=== PATIENT | male | born 1980 | race Caucasian/White ===

== ENCOUNTER 2022-12-02 22:01 | Observation (INO) | payer SELFPAY ==
[2022-12-02 22:20] VITALS: BP 117/76; PULSE 82; RESP 18; TEMP 37.5; O2SAT 96; BMI 34.4
[2022-12-02 23:42] VITALS: BP 127/79; PULSE 79; RESP 18; O2SAT 97
--- NOTE | 2022-12-02 23:54 | ED.ABDPAIN ---
HPI - Abdominal Pain General Time Seen by Provider: 23:54 Date Seen: 12/02/22 Chief Complaint: Abdominal Pain Stated Complaint: abdominal pain Time Seen by Provider: 12/02/22 23:49 Source: patient, family, RN notes reviewed and old records reviewed Mode of arrival: ambulatory Limitations: no limitations History of Present Illness HPI narrative: 42-year-old male comes in with abdominal pain today. Nausea but no vomiting, some loose stools. Denies urinary symptoms. Pain is worse with standing or walking. Took Pepto-Bismol with no relief. No prior surgeries, does not smoke or drink alcohol, no primary care. Last oral intake was at noon. Related Data Allergies Allergy/AdvReac Type Severity Reaction Status Date / Time No Known Drug Allergies Allergy Verified 12/02/22 22:27 Exam Narrative: Exam Narrative: General: Well-developed and well-nourished, no acute distress Head: Atraumatic and normocephalic Eyes: Pupils are equal reactive, extraocular motions intact, conjunctiva clear ENT: External nose and ears are normal, posterior pharynx without erythema or exudate Neck: No midline cervical tenderness, full spontaneous range of motion the neck, trachea midline, no adenopathy Heart: Regular rate and rhythm no murmurs or thrills Lungs: Clear to auscultation bilaterally without wheezes or crackles Abdomen: Soft, right lower quadrant tenderness,, nondistended with active bowel sounds Musculoskeletal: No tenderness, deformity, or edema Neurologic: Awake, alert, and oriented x3, no gross focal neurologic deficits, cranial nerves intact as tested Psych: Mood and affect are appropriate Skin: No rashes Const: Vital Signs, click to edit/add: Vital Signs - 24 hr 12/02/22 22:20 12/02/22 23:42 Temperature 99.5 F Pulse Rate [Right Pulse Oximeter] 82 79 Respiratory Rate 18 18 Blood Pressure [Ri ght Upper Arm] 117/76 127/79 Pulse Oximetry 96 97 Oxygen Delivery Me thod Room Air Room Air Course Course Hospital Course: Patient seen and examined, prior records reviewed. Patient presents today with abdominal pain since noon, marked tenderness of the right lower quadrant on exam. Concern for acute appendicitis, mesenteric adenitis also possible. No right upper quadrant epigastric tenderness, acute cholecystitis or pancreatitis less likely, no urinary symptoms or flank pain, kidney stone also less likely. Labs and CT scan are ordered. Reevaluation(s) Time of Reevaluation #1: 00:51 Reevaluation #1: Labs independently interpreted by me with leukocytosis. CT scan independently interpreted by me demonstrates dilated appendix with mild inflammatory changes consistent with acute appendicitis, no evidence for perforation. Care discussed with Dr. Rand, general surgery and patient will be admitted with plan for surgery in the morning. Vital Signs Vital signs: Initial Vital Signs Temperature 99.5 F 12/02/22 22:20 Temperature Source Temporal Artery Scan 12/02/22 22:20 Pulse Rate 82 12/02/22 22:20 Pulse Rhythm Regular 12/02/22 22:20 Respiratory Rate 18 12/02/22 22:20 Blood Pressure 117/76 12/02/22 22:20 Blood Pressure Mean 89 12/02/22 22:20 Blood Pressure Position Sitting 12/02/22 22:20 Pulse Oximetry 96 12/02/22 22:20 Oxygen Delivery Method Room Air 12/02/22 22:20 Vital Signs Temperature 99.5 F 12/02/22 22:20 Pulse Rate 82 12/02/22 22:20 Respiratory Rate 18 12/02/22 22:20 Blood Pressure 117/76 12/02/22 22:20 Pulse Oximetry 96 12/02/22 22:20 Oxygen Delivery Method Room Air 12/02/22 22:20 Temperature 99.5 F 12/02/22 22:20 Pulse Rate 79 12/02/22 23:42 Respiratory Rate 18 12/02/22 23:42 Blood Pressure 127/79 12/02/22 23:42 Pulse Oximetry 97 12/02/22 23:42 Oxygen Delivery Method Room Air 12/02/22 23:42 MDM - Abdominal Pain Lab Data Labs: Lab Results 12/03/22 Range/Units 00:07 WBC 14.94 H (4.50-11.00) K/uL RBC 5.72 (4.30-5.90) m/uL Hgb 16.5 (13.5-17.5) gm/dL Hct 48.3 (37.0-53.0) % MCV 84 (80-100) fL MCH 29 (26-34) pg MCHC 34 (32-36) gm/dL RDW Coeff of Nancy 12.5 (11.5-15.5) % Plt Count 244 (140-440) K/uL Neut % (Auto) 86.6 H (42.0-72.0) % Lymph % (Auto) 6.8 L (20-44) % Hodgeman % (Auto) 6.0 (0.0-11.0) % Eos % (Auto) 0.1 (0.0-7.0) % Baso % (Auto) 0.3 (0.0-3.0) % Neut # (Auto) 12.90 H (1.7-7.0) K/uL Lymph # (Auto) 1.00 (0.90-2.90) K/uL Hodgeman # (Auto) 0.90 (0.00-0.90) K/UL Eos # (Auto) 0.00 (0.00-0.50) K/uL Baso # (Auto) 0.00 (0.00-0.30) K/uL Abs Immat Gran (auto) 0.00 (0.00-0.30) K/uL Imm/Tot Granulo (auto) 0.2 % Sodium 138 (135-149) mmol/L Potassium 3.5 L (3.6-5.1) mmol/L Chloride 105 (96-114) mmol/L Carbon Dioxide 24 (20-32) mmol/L BUN 9 (5-24) mg/dL Creatinine 0.9 (0.5-1.5) mg/dL Estimated Creat Clear 93.01 Estimated GFR 109 ml/min Glucose 119 H (60-115) mg/dL Calcium 9.1 (8.4-10.6) mg/dL Magnesium 1.9 (1.5-2.6) mg/dL Discharge Plan Discharge Clinical Impression: Acute appendicitis Patient Disposition: Admitted As Observation
[2022-12-03] MEDS: 0.9 % SODIUM CHLORIDE 1000 ml 1,000 ML IV (00:10)
--- NOTE | 2022-12-03 00:12 | CRLHL7_ITS ---
For Patients: As a result of the Cures Act, medical imaging exams and procedure reports are released immediately into your electronic medical record. You may view this report before your referring provider. If you have questions, please contact your health care provider. INDICATION: Right lower quadrant abdominal pelvic pain TECHNIQUE: CT Abdomen and pelvis without i.v. contrast. Coronal and sagittal reformats were obtained. COMPARISON: None FINDINGS: Lower chest: Minimal pleural parenchymal scarring seen in the left posterior lower lobe. There is a 3 mm nodule in the left lower lobe that is too small to further characterize. Liver: Unremarkable. Spleen: Unremarkable. Pancreas: Unremarkable. Gallbladder: Unremarkable. Kidney: Unremarkable. No kidney or ureteral stones or obstruction seen. Adrenal: Unremarkable. Bowel: Unremarkable. The appendix is distended measuring 11 mm. There is mild surrounding inflammatory changes noted. No periappendiceal abscess is seen. Vascular: Unremarkable. Lymph: Unremarkable. Peritoneum: Unremarkable. No pneumoperitoneum is seen. No significant ascites is noted. Pelvis: Unremarkable. Soft tissue: Unremarkable. Bone: Unremarkable for age. IMPRESSION: 1. The appendix is distended measuring 11 mm. There is mild surrounding inflammatory changes noted. No periappendiceal abscess is seen. These findings are consistent with acute appendicitis. Dictated by Yury Camilo MD @ 12/03/2022 12:47:14 AM Please note that all CT scans at this facility use dose modulation, iterative reconstruction, and/or weight-based dosing when appropriate to reduce radiation dose to as low as reasonably achievable. Dictated by: Yury Camilo MD @ 12/03/2022 00:47:30 (Electronically Signed)
[2022-12-03 00:16] LABS: Basophils Percent Auto 0.3 % (0.0-3.0); Eosinophils Percent Auto 0.1 % (0.0-7.0); Hematocrit 48.3 % (37.0-53.0); Hemoglobin* 16.5 gm/dL (13.5-17.5); Immature Granulocytes Pct Auto 0.2 %; Lymphocytes Percent Auto 6.8 % (20-44); Mean Corpuscular HGB Conc 34 gm/dL (32-36); Mean Corpuscular Hemoglobin 29 pg (26-34); Mean Corpuscular Volume 84 fL (80-100); Neutrophils Percent Auto 86.6 % (42.0-72.0); Platelet Count* 244 K/uL (140-440); RDW Coefficient of Variation % 12.5 % (11.5-15.5); Red Blood Count 5.72 m/uL (4.30-5.90); Slide Review Reflex No; White Blood Count* 14.94 K/uL (4.50-11.00)
[2022-12-03 00:28] LABS: Chloride* 105 mmol/L (96-114); Potassium* 3.5 mmol/L (3.6-5.1); Sodium* 138 mmol/L (135-149)
[2022-12-03 00:31] LABS: Blood Urea Nitrogen* 9 mg/dL (5-24); Carbon Dioxide* 24 mmol/L (20-32); Creatinine* 0.9 mg/dL (0.5-1.5); Est. Creatinine Clearance* 93.01; Estimated Glomerular Filt Rate 109 ml/min; Glucose* 119 mg/dL (60-115)
[2022-12-03 00:32] LABS: Calcium* 9.1 mg/dL (8.4-10.6); Magnesium* 1.9 mg/dL (1.5-2.6)
[2022-12-03 01:07] VITALS: BP 119/75; PULSE 94; RESP 18; TEMP 37.3; O2SAT 97
--- NOTE | 2022-12-03 01:13 | PC.NURSE ---
report given to manuela RN, patient to go to room 260
[2022-12-03 01:41] VITALS: BP 122/84; PULSE 92; RESP 18; TEMP 37.8; O2SAT 94; BMI 33.2
[2022-12-03 01:53] VITALS: TEMP 37.8
[2022-12-03] MEDS: ACETAMINOPHEN 325 MG TABLET 650 MG PO (01:53)
[2022-12-03] MEDS: PIPERACILLIN/TAZOBACTAM 3.375 GM in 0.9 % SODIUM CHLORIDE Mini-bag 100 ML IVPB ×2 (01:55→08:00)
[2022-12-03] MEDS: LACTATED RINGERS 1000 ML 1,000 ML 125 ML IV (01:55)
[2022-12-03 03:00] VITALS: BP 109/74; PULSE 78; RESP 18; TEMP 37.6; O2SAT 92
--- NOTE | 2022-12-03 06:45 | PC.NURSE ---
Arrived to floor at 0115 w/ . A&O, pleasant and cooperative. Pt is primarily Georgian speaking, strategic communications manager offered, pt declined. Waiver signed in ED. Temp on admission 100.0 VS otherwise stable w/ sats >90% on RA. Tylenol given. Recheck temp 99.6. ?Rating abd pain 07/05. Pt declined pain medication. Denied n/v. Up at [facility].
[2022-12-03 07:00] VITALS: BP 104/72; PULSE 82; RESP 18; TEMP 37.1; O2SAT 94
[2022-12-03 07:50] LABS: Basophils Percent Auto 0.3 % (0.0-3.0); Eosinophils Percent Auto 0.5 % (0.0-7.0); Hematocrit 45.3 % (37.0-53.0); Hemoglobin* 15.3 gm/dL (13.5-17.5); Immature Granulocytes Pct Auto 0.2 %; Lymphocytes Percent Auto 21.2 % (20-44); Mean Corpuscular HGB Conc 34 gm/dL (32-36); Mean Corpuscular Hemoglobin 29 pg (26-34); Mean Corpuscular Volume 86 fL (80-100); Neutrophils Percent Auto 68.8 % (42.0-72.0); Platelet Count* 225 K/uL (140-440); RDW Coefficient of Variation % 12.7 % (11.5-15.5); Red Blood Count 5.29 m/uL (4.30-5.90); White Blood Count* 12.33 K/uL (4.50-11.00)
[2022-12-03 07:53] LABS: Slide Review Reflex No
--- NOTE | 2022-12-03 08:39 | P.GSHP_ITS ---
History of Present Illness History of Present Illness Date Seen: 12/03/22 Chief complaint: abdominal pain Narrative: Laurel Berrios is a 42 year old male who presented to the emergency department last night with a one day history of lower abdominal pain. He states that the pain was mainly focused in a band around his belly button and in the right lower quadrant. He has never had pain like this before, which prompted him to come in. He denies any decrease in appetite, nausea or vomiting. No reported fevers at home. No diarrhea or constipation. He has never had surgery before. Patient was admitted to [facility] [place] [place] initiated. On evaluation this morning the patient states that he has had complete resolution of his pain. He had Tylenol at 2:00 a.m., no need for narcotic pain medicine. He was feeling hungry and wanting to get up and move around. Review of Systems Status of ROS: Reports: 10 or more systems reviewed and unremarkable except as noted in History and below PFSH PFS Social History What is your current living situation?: I presently have a place to live Problems where you live: no known problems Problems where you live details: n/a In the past 12 months, utilities in danger of being shut off: no In the past 12 mos, have been you worried that your food would run out before you had money to buy more?: never true In the past 12 mos, the food you bought just didn't last and you didn't have money to buy more?: never true Highest level of school completed/degree received: high school graduate Smoking Status: Never smoker Do you use any of these nicotine containing products: None How often do you have a drink containing alcohol: 2-3 times a week How many standard drinks containing alcohol do you have on a typical day: 1 or 2 How often do you have six or more drinks on one occasion: Never AUDIT-C Alcohol total score: 3 Non-prescribed substance use: denies use How often does anyone, including family, friends and others, physically hurt you : never How often does anyone, including family, friends and others, insult or talk down to you: never How often does anyone, including family, friends and others, threaten you with harm: never How often does anyone, including family, friends and others, scream or curse at you: never Meds Home Medications and Allergies Allergies Allergy/AdvReac Type Severity Reaction Status Date / Time No Known Drug Allergies Allergy Verified 12/02/22 22:27 Exam Narrative: Exam Narrative: General: Alert and oriented, no acute distress Respiratory: Equal breath rise bilaterally, clear breath sounds CV: Regular rhythm rate Abdomen: Soft, nontender and nondistended. Benign abdomen with no guarding or rebound. Const: Vital Signs, click to edit/add: Vital Signs - 24 hr 12/02/22 22:20 12/02/22 23:42 12/03/22 01:07 Temperature 99.5 F 99.1 F Pulse Rate [Pulse Oximeter] Pulse Rate [Right Pulse Oximeter] 82 79 94 Respiratory Rate 18 18 18 Blood Pressure [Le ft Arm] Blood Pressure [Ri ght Upper Arm] 117/76 127/79 119/75 Pulse Oximetry 96 97 97 Oxygen Delivery Me thod Room Air Room Air Room Air 12/03/22 01:41 12/03/22 01:53 12/03/22 03:00 Temperature 100.0 F H 100.0 F H 99.6 F Pulse Rate [Pulse Oximeter] 92 78 Pulse Rate [Right Pulse Oximeter] Respiratory Rate 18 18 Blood Pressure [Le ft Arm] 122/84 109/74 Blood Pressure [Ri ght Upper Arm] Pulse Oximetry 94 92 Oxygen Delivery Me thod Room Air Room Air 12/03/22 07:00 Temperature 98.7 F Pulse Rate [Pulse Oximeter] 82 Pulse Rate [Right Pulse Oximeter] Respiratory Rate 18 Blood Pressure [Le ft Arm] 104/72 Blood Pressure [Ri ght Upper Arm] Pulse Oximetry 94 Oxygen Delivery Me thod Room Air Results Results Labs: WBC is down trending this morning (14--12). No longer evidence of a left shift. Abdomen CT scan report/results: report reviewed and image reviewed (Patient does have a dilated appendix with minimal dale appendiceal inflammation. No evidence of fecalith. No evidence of perforation. Findings are concerning for acute appendicitis.) Assessment and Plan Assessment and plan (1) Acute appendicitis: Status: Acute Plan Patient is a 42-year-old male presented with clinical workup concerning for acute appendicitis. On presentation this morning the patient is reporting resolution of his pain. I did discuss with the patient that his white blood cell count is trending in the right direction, but still mildly elevated at 12. I also reviewed the patient's imaging findings, which includes a mildly dilated appendix with some periappendiceal inflammation. Different treatment options were reviewed, including medical management of appendicitis with antibiotics versus operative intervention. I discussed that the surgery would be performed laparoscopic. In the setting that the appendix is normal an appendectomy would still occur. For non operative management a course of antibiotics would be prescribed. He does understand that if he chooses this option there is a possibility of disease progression, disease recurrence or missed neoplasm. After discussing risk and benefits of both treatment options the patient has elected for medical management at this time. He is a candidat with evidence on imaging of localized inflammation without findings of diffuse peritonitis or imaging evidence of large abscess, phlegmon, perforation or tumor. There was also no evidence of a appendicolith, which increases the risk of complications. Will plan for diet this morning. Continue IV antibiotics while inpatient and transition to oral antibiotics to complete a 10 day course. He was encouraged to call the clinic or present to the emergency department with any increasing abdominal pain or fevers at.
--- NOTE | 2022-12-03 12:03 | PC.NURSE ---
0730 spoke with surgeon regarding patient, verbal order for stat cbc, call with results. phoned surgeon at 0830 with cbc results, order for regular diet and encourage patient to ambulate in hallways and call back with update. phoned surgeon with update tolerating regular diet and ambulation without increase in pain and no nausea, around 1100 call back and telephone order for discharge.
--- NOTE | 2022-12-03 12:12 | PC.NURSE ---
Patient denied pain. Tolerated regular diet and fluids. Denied nausea or vomiting. Ate and ambulated independently. IV discontinued. Pt discharged at this time. In person dipping machine operator used with discharge instructions. Pt verbalized understanding. Ambulated out of med/surg with significant other.
--- NOTE | 2022-12-03 12:13 | PM.DS1 ---
DS: Providers Provider Date Seen: 12/03/22 Date of admission: 12/03/22 01:16 Primary care physician: Not a Local Provider Admitting Clinician: Shanti Bains MD Attending Physician on discharge: Shanti Bains MD DS: Summary Hospital Course Hospital Course: Patient presented to the emergency department on 12/02/22. Clinical workup and symptoms concerning for acute appendicitis. He was admitted and started on IV antibiotics. I evaluated the patient on 12/03/2022 with patient reporting complete resolution of his pain and benign exam. Different treatment options were reviewed with the patient, which included medical management versus surgical intervention. Risks and benefits were discussed at length with the patient deciding to proceed with medical management and a course of antibiotics. The patient did express understanding of risks, which includes but are not limited to progression of disease, recurrence of disease or missed neoplasm. He was instructed to call with any symptoms of worsening abdominal pain or fevers. Patient was transition from IV Zosyn to the oral amoxicillin, to complete a 10 day course. Will plan for patient to follow up either in surgery clinic or his primary care provider in 1 week. Time Spent with Patient Time attestation: Total time spent providing and/or coordinating discharge services: Exam Narrative: Exam Narrative: Please see consultation note from same date. Const: Vital Signs, click to edit/add: Vital Signs - 24 hr 12/02/22 22:20 12/02/22 23:42 12/03/22 01:07 Temperature 99.5 F 99.1 F Pulse Rate [Pulse Oximeter] Pulse Rate [Right Pulse Oximeter] 82 79 94 Respiratory Rate 18 18 18 Blood Pressure [Le ft Arm] Blood Pressure [Ri ght Upper Arm] 117/76 127/79 119/75 Pulse Oximetry 96 97 97 Oxygen Delivery De thod Room Air Room Air Room Air 12/03/22 01:41 12/03/22 01:53 12/03/22 03:00 Temperature 100.0 F H 100.0 F H 99.6 F Pulse Rate [Pulse Oximeter] 92 78 Pulse Rate [Right Pulse Oximeter] Respiratory Rate 18 18 Blood Pressure [Le ft Arm] 122/84 109/74 Blood Pressure [Ri ght Upper Arm] Pulse Oximetry 94 92 Oxygen Delivery De thod Room Air Room Air 12/03/22 07:00 Temperature 98.7 F Pulse Rate [Pulse Oximeter] 82 Pulse Rate [Right Pulse Oximeter] Respiratory Rate 18 Blood Pressure [Le ft Arm] 104/72 Blood Pressure [Ri ght Upper Arm] Pulse Oximetry 94 Oxygen Delivery Me thod Room Air DS: Data Data Completed and Pending Labs on day of discharge: Labs from last 24 hours 12/03/22 12/03/22 07:44 00:07 WBC 12.33 H 14.94 H RBC 5.29 5.72 Hgb 15.3 16.5 Hct 45.3 48.3 MCV 86 84 MCH 29 29 MCHC 34 34 RDW Coeff of Nancy 12.7 12.5 Plt Count 225 244 Neut % (Auto) 68.8 86.6 H Lymph % (Auto) 21.2 6.8 L Carlton % (Auto) 9.0 6.0 Eos % (Auto) 0.5 0.1 Baso % (Auto) 0.3 0.3 Neut # (Auto) 8.50 H 12.90 H Lymph # (Auto) 2.60 1.00 Carlton # (Auto) 1.10 H 0.90 Eos # (Auto) 0.10 0.00 Baso # (Auto) 0.00 0.00 Abs Immat Gran (auto) 0.00 0.00 Imm/Tot Granulo (auto) 0.2 0.2 Sodium 138 Potassium 3.5 L Chloride 105 Carbon Dioxide 24 BUN 9 Creatinine 0.9 Estimated Creat Clear 93.01 Estimated GFR 109 Glucose 119 H Calcium 9.1 Magnesium 1.9 Discharge Plan Discharge Disposition: Home, Self-Care Date of Admission: 12/03/22 01:16 Primary Care Provider: Provider,Not a Local Condition: Improved Anticipated Discharge Date/Time: 12/03/22 10:42 Discharge Medications: New amoxicillin-pot clavulanate 875-125 mg tablet 1 tab PO BID 9 Days Qty: 18 0RF Discharge Orders: Discharge Order (Routine); Ordered 12/03/22 Ordered By: Kate Rand Patient Education: Amoxicillin/Clavulanate Potassium (By mouth) (Augmentin, Augmentin..., Appendicitis (GEN) Additional Instructions: Okay to resume regular diet. Please call the surgery clinic or present to the emergency department with any increasing abdominal pain, fevers or vomiting. Activity Level: Activity as Tolerated Discharge Diet: Regular Follow Up Appointments: Kate Rand MD [Staff Physician] - 12/19/22 1:00 pm ([facility] with Dr. Rand) Provider,Not a Local [Primary Care Provider] - Forms: [employer] Info Instructions
== END 2022-12-03 12:05 | disposition home or self-care (01) ==
LOC: ED 12-03 00:52 → MEDSURG 12-03 01:16
PROVIDERS: Surgery; Admitting Provider Family Medicine; Emergency Provider Family Medicine; Visit Provider Family Medicine
PROC: 0DTJ4ZZ Resection of Appendix, Percutaneous Endoscopic Approach (ICD-10-PCS; CPT 44970; principal; 2022-12-03 11:45)
DX: K35.80 Unspecified acute appendicitis (principal); R11.0 Nausea; R10.31 Right lower quadrant pain; D72.829 Elevated white blood cell count, unspecified
CPT/HCPCS: 36415; 74176; 80048; 83735; 85025; 96361; 96365; 96366; 99284; 99285; A9270; G0378; J2543; J7030; J7120

== ENCOUNTER 2022-12-12 07:04 | Emergency (ER) | payer SELFPAY ==
[2022-12-12 07:17] VITALS: BP 135/94; PULSE 73; RESP 18; TEMP 36.8; O2SAT 98; BMI 34.3
--- NOTE | 2022-12-12 07:34 | ED_ITS ---
HPI - General Adult General Chief complaint: Abdominal Pain <Angelo Nascimento MD - Last Filed: 12/12/22 16:04> Stated complaint: stomach pain, vomiting, diarrhea <Angelo Nascimento MD - Last Filed: 12/12/22 16:04> Time Seen by Provider: 12/12/22 07:34 <Angelo Nascimento MD - Last Filed: 12/12/22 16:04> History of Present Illness HPI narrative: Patient was seen in ED 12/02 and admitted for acute appendicitis. Consulted with surgery and decided on medical management. Has been on Augmentin with resolution of pain. Yesterday , experiencing vomiting and diarrhea with diffuse abdominal cramping. 42-year-old man presenting to the emergency department with complaint of vomiting and diarrhea. This began last night and continued to this morning. Has not any fever. Has had abdominal cramping but no persistent area of pain. No blood in his stool or vomitus. Was seen at this facility 10 days ago and diagnosed with appendicitis. Upon surgical consultation however his pain had resolved in abdominal exam was benign. Was discharged home with medical management on Augmentin. He has felt quite well until last night. Sounds though until last night at least he has tolerated this medication just fine. Looks like he has 2 more doses to take. Has not had any sick contacts that he is aware of. <Angelo Nascimento MD - Last Filed: 12/12/22 16:04> Related Data Home medications: Previous Rx's Medication Instructions Recorded amoxicillin 875 mg-potassium 1 tab PO BID 9 days #18 tabs 12/03/22 clavulanate 125 mg tablet <Angelo Nascimento MD - Last Filed: 12/12/22 16:04> Allergies/adverse reactions: Allergies Allergy/AdvReac Type Severity Reaction Status Date / Time No Known Drug Allergies Allergy Verified 12/12/22 09:08 <Angelo Nascimento MD - Last Filed: 12/12/22 16:04> Review of Systems Status of ROS: Reports: 6 or more systems reviewed and unremarkable except as noted in History and below <Angelo Nascimento MD - Last Filed: 12/12/22 16:04> PFSH PFS Social History: Social History What is your current living situation?: I presently have a place to live Problems where you live: no known problems Problems where you live details: n/a In the past 12 months, utilities in danger of being shut off: no In the past 12 mos, have been you worried that your food would run out before you had money to buy more?: never true In the past 12 mos, the food you bought just didn't last and you didn't have money to buy more?: never true Highest level of school completed/degree received: high school graduate Smoking Status: Never smoker Do you use any of these nicotine containing products: None How often do you have a drink containing alcohol: 2-3 times a week How many standard drinks containing alcohol do you have on a typical day: 1 or 2 How often do you have six or more drinks on one occasion: Never AUDIT-C Alcohol total score: 3 Non-prescribed substance use: denies use How often does anyone, including family, friends and others, physically hurt you : never How often does anyone, including family, friends and others, insult or talk down to you: never How often does anyone, including family, friends and others, threaten you with harm: never How often does anyone, including family, friends and others, scream or curse at you: never service: No <Angelo Nascimento MD - Last Filed: 12/12/22 16:04> Exam Narrative: Exam Narrative: A pleasant. NAD. Limited response to questioning. Accompanied here by significant other. Is breathing easily. Lungs are clear. Oropharynx unremarkable. Neck is supple without lymphadenopathy. Heart in a regular rate and rhythm without murmur rub or gallop. Abdomen is protuberant soft hyperactive bowel sounds. Diffusely mildly uncomfortable to palpation without peritoneal signs. He is not more tender in this right lower abdomen. Extremities well perfused. Lower extremities are without edema. <Angelo Nascimento MD - Last Filed: 12/12/22 16:04> Const: Vital Signs, click to edit/add: Vital Signs - 24 hr 12/12/22 07:17 12/12/22 08:24 Temperature 98.3 F 97.5 F L Pulse Rate [Pulse Oximeter] 73 68 Respiratory Rate 18 16 Blood Pressure [Ri ght Upper Arm] 135/94 H 123/85 Pulse Oximetry 98 97 Oxygen Delivery Me thod Room Air Room Air <Angelo Nascimento MD - Last Filed: 12/12/22 16:04> Vital Signs, click to edit/add: Vital Signs - 24 hr 12/12/22 07:17 12/12/22 08:24 Temperature 98.3 F 97.5 F L Pulse Rate [Pulse Oximeter] 73 68 Respiratory Rate 18 16 Blood Pressure [Ri ght Upper Arm] 135/94 H 123/85 Pulse Oximetry 98 97 Oxygen Delivery Me thod Room Air Room Air <Art Yadav MD - Last Filed: 12/12/22 13:21> Documenting provider has reviewed patient's vital signs: yes <Angelo Nascimento MD - Last Filed: 12/12/22 16:04> Course Course Hospital Course: Patient did well had no further episodes of diarrhea had no abdominal pain. I reviewed his T with him and his girlfriend. Stop the antibiotics and see how it goes, treatment for his colitis. Will be watchful waiting in fluids. Little bit of Zofran. <Angelo Nascimento MD - Last Filed: 12/12/22 16:04> Vital Signs Vital signs: Initial Vital Signs Temperature 98.3 F 12/12/22 07:17 Temperature Source Temporal Artery Scan 12/12/22 07:17 Pulse Rate 73 12/12/22 07:17 Respiratory Rate 18 12/12/22 07:17 Blood Pressure 135/94 H 12/12/22 07:17 Blood Pressure Mean 107 H 12/12/22 07:17 Blood Pressure Position Semi-Fowlers 12/12/22 07:17 Pulse Oximetry 98 12/12/22 07:17 Oxygen Delivery Method Room Air 12/12/22 07:17 Vital Signs Temperature 98.3 F 12/12/22 07:17 Pulse Rate 73 12/12/22 07:17 Respiratory Rate 18 12/12/22 07:17 Blood Pressure 135/94 H 12/12/22 07:17 Pulse Oximetry 98 12/12/22 07:17 Oxygen Delivery Method Room Air 12/12/22 07:17 Temperature 97.5 F L 12/12/22 08:24 Pulse Rate 68 12/12/22 08:24 Respiratory Rate 16 12/12/22 08:24 Blood Pressure 123/85 12/12/22 08:24 Pulse Oximetry 97 12/12/22 08:24 Oxygen Delivery Method Room Air 12/12/22 08:24 <Angelo Nascimento MD - Last Filed: 12/12/22 16:04> Initial Vital Signs Temperature 98.3 F 12/12/22 07:17 Temperature Source Temporal Artery Scan 12/12/22 07:17 Pulse Rate 73 12/12/22 07:17 Respiratory Rate 18 12/12/22 07:17 Blood Pressure 135/94 H 12/12/22 07:17 Blood Pressure Mean 107 H 12/12/22 07:17 Blood Pressure Position Semi-Fowlers 12/12/22 07:17 Pulse Oximetry 98 12/12/22 07:17 Oxygen Delivery Method Room Air 12/12/22 07:17 Vital Signs Temperature 98.3 F 12/12/22 07:17 Pulse Rate 73 12/12/22 07:17 Respiratory Rate 18 12/12/22 07:17 Blood Pressure 135/94 H 12/12/22 07:17 Pulse Oximetry 98 12/12/22 07:17 Oxygen Delivery Method Room Air 12/12/22 07:17 Temperature 97.5 F L 12/12/22 08:24 Pulse Rate 68 12/12/22 08:24 Respiratory Rate 16 12/12/22 08:24 Blood Pressure 123/85 12/12/22 08:24 Pulse Oximetry 97 12/12/22 08:24 Oxygen Delivery Method Room Air 12/12/22 08:24 <Art Yadav MD - Last Filed: 12/12/22 13:21> Medical Decision Making MDM Narrative Medical decision making narrative: This could be have viral gastroenteritis, reaction to medication, other colitis possibly C diff in light of recent antibiotics, worsening appendicitis however does not have peritoneal signs. He would like to get some relief these symptoms at a minimum. Will screen with labs initiate IV fluid hydration and antiemetic. <Angelo Nascimento MD - Last Filed: 12/12/22 16:04> Medical Records Medical records reviewed: Yes I reviewed the patient's medical records <Angelo Nascimento MD - Last Filed: 12/12/22 16:04> Lab Data Labs: Lab Results 12/12/22 12/12/22 12/12/22 Range/Units 08:20 08:30 12:05 WBC 10.25 (4.50-11.00) K/uL RBC 5.92 H (4.30-5.90) m/uL Hgb 17.1 (13.5-17.5) gm/dL Hct 49.7 (37.0-53.0) % MCV 84 (80-100) fL MCH 29 (26-34) pg MCHC 34 (32-36) gm/dL RDW Coeff of Nancy 12.4 (11.5-15.5) % Plt Count 263 (140-440) K/uL Neut % (Auto) 79.0 H (42.0-72.0) % Lymph % (Auto) 13.9 L (20-44) % [place] % (Auto) 6.1 (0.0-11.0) % Eos % (Auto) 0.1 (0.0-7.0) % Baso % (Auto) 0.7 (0.0-3.0) % Neut # (Auto) 8.10 H (1.7-7.0) K/uL Lymph # (Auto) 1.40 (0.90-2.90) K/uL [place] # (Auto) 0.60 (0.00-0.90) K/UL Eos # (Auto) 0.01 (0.00-0.50) K/uL Baso # (Auto) 0.07 (0.00-0.30) K/uL Abs Immat Gran (auto) 0.02 (0.00-0.30) K/uL Imm/Tot Granulo (auto) 0.2 % Sodium 138 (135-149) mmol/L Potassium 4.2 (3.6-5.1) mmol/L Chloride 107 (96-114) mmol/L Carbon Dioxide 21 (20-32) mmol/L BUN 12 (5-24) mg/dL Creatinine 0.7 (0.5-1.5) mg/dL Estimated Creat Clear 115.11 Estimated GFR 118 ml/min Glucose 107 (60-115) mg/dL Lactate 1.5 (0.5-1.9) mmol/L Calcium 8.6 (8.4-10.6) mg/dL Total Bilirubin 1.4 (0.1-1.5) mg/dL Direct Bilirubin 0.5 (0.0-0.5) mg/dL AST 60 H (12-35) U/L ALT 45 (4-50) U/L Alkaline Phosphatase 68 (40-150) U/L C-Reactive Protein 0.7 (0.5-1.0) mg/dL Total Protein 8.2 (6.0-8.3) g/dL Albumin 4.4 (3.3-5.0) g/dL Stl C. diff Tox B Gene Negative (Negative) Stl C. diff 027-NAP1-BI PRESUMPTIVE NEGATIVE (Negative) SARS-CoV-2 (PCR) Negative SARS-CoV-2 (Negative) Influenza Type A (PCR) Negative PCR FLU A (Negative) Influenza Type B (PCR) Negative PCR FLU B (Negative) <Angelo Nascimento MD - Last Filed: 12/12/22 16:04> Lab Results 12/12/22 12/12/22 12/12/22 Range/Units 08:20 08:30 12:05 WBC 10.25 (4.50-11.00) K/uL RBC 5.92 H (4.30-5.90) m/uL Hgb 17.1 (13.5-17.5) gm/dL Hct 49.7 (37.0-53.0) % MCV 84 (80-100) fL MCH 29 (26-34) pg MCHC 34 (32-36) gm/dL RDW Coeff of Nancy 12.4 (11.5-15.5) % Plt Count 263 (140-440) K/uL Neut % (Auto) 79.0 H (42.0-72.0) % Lymph % (Auto) 13.9 L (20-44) % [place] % (Auto) 6.1 (0.0-11.0) % Eos % (Auto) 0.1 (0.0-7.0) % Baso % (Auto) 0.7 (0.0-3.0) % Neut # (Auto) 8.10 H (1.7-7.0) K/uL Lymph # (Auto) 1.40 (0.90-2.90) K/uL [place] # (Auto) 0.60 (0.00-0.90) K/UL Eos # (Auto) 0.01 (0.00-0.50) K/uL Baso # (Auto) 0.07 (0.00-0.30) K/uL Abs Immat Gran (auto) 0.02 (0.00-0.30) K/uL Imm/Tot Granulo (auto) 0.2 % Sodium 138 (135-149) mmol/L Potassium 4.2 (3.6-5.1) mmol/L Chloride 107 (96-114) mmol/L Carbon Dioxide 21 (20-32) mmol/L BUN 12 (5-24) mg/dL Creatinine 0.7 (0.5-1.5) mg/dL Estimated Creat Clear 115.11 Estimated GFR 118 ml/min Glucose 107 (60-115) mg/dL Lactate 1.5 (0.5-1.9) mmol/L Calcium 8.6 (8.4-10.6) mg/dL Total Bilirubin 1.4 (0.1-1.5) mg/dL Direct Bilirubin 0.5 (0.0-0.5) mg/dL AST 60 H (12-35) U/L ALT 45 (4-50) U/L Alkaline Phosphatase 68 (40-150) U/L C-Reactive Protein 0.7 (0.5-1.0) mg/dL Total Protein 8.2 (6.0-8.3) g/dL Albumin 4.4 (3.3-5.0) g/dL Stl C. diff Tox B Gene Negative (Negative) Stl C. diff 027-NAP1-BI PRESUMPTIVE NEGATIVE (Negative) SARS-CoV-2 (PCR) Negative SARS-CoV-2 (Negative) Influenza Type A (PCR) Negative PCR FLU A (Negative) Influenza Type B (PCR) Negative PCR FLU B (Negative) <Art Yadav MD - Last Filed: 12/12/22 13:21> Imaging Data CT scan - abdomen: Radiologist's impression: Patient: PEDRO CROWELL Facility: [facility] Site . Site : [id number] Study: CT Abdomen/Pelvis 98CC ISOVUE 370-12/12/2022 9:01:42 AM Ordering Physician: Pily Stephens Final Report: INDICATION: RECENT APPENDICITIS, DIARRHEA, VOMITING, ABD PAIN TECHNIQUE: CT abdomen and pelvis acquired with 98 cc Isovue 370 IV contrast. COMPARISON: 12/03/2022. FINDINGS: Lower chest: Unremarkable. Liver: Unremarkable. Normal in size and attenuation. No suspicious masses. Gallbladder and bile ducts: Unremarkable. No stones or inflammation. No biliary dilatation. Pancreas: Unremarkable. No mass or inflammation. Spleen: Unremarkable. Normal in size. No masses. Adrenal glands: Unremarkable. No nodules. Kidneys: Unremarkable. No suspicious masses, stones, or hydronephrosis. GI tract: In this patient with a history of ?recent appendicitis?, the appendix appears to remain and is normal in caliber, with no periappendiceal inflammatory changes. Subjective mild circumferential uniform wall thickening over a long seg ment of the right colon, from the ascending colon to the proximal descending colon, could be due to colitis but is considered equivocal. No pericolic inflammatory fat stranding. Normal appendix. Vasculature: Abdominal aorta is normal in caliber. Mesenteric arteries are patent. Lymph nodes: No lymphadenopathy. Peritoneum/Abdominal Wall: Small fat containing umbilical hernia. Pelvis: Unremarkable. Bones: Unremarkable for age. IMPRESSION: Normal appendix. Finding consistent with mild long segmental colitis described above. Correlation with the patient`s clinical status is recommended. No other imaging findings are seen to explain the clinical history. Please note that all CT scans at this facility use dose modulation, iterative reconstruction, and/or weight-based dosing when appropriate to reduce radiation dose to as low as reasonably achievable. Dictated by Quinn Zarate MD @ 12/12/2022 9:24:51 AM (Electronic Signature) <Art Yadav MD - Last Filed: 12/12/22 13:21> Discharge Plan Discharge Clinical Impression: Colitis, Diarrhea <Angelo Nascimento MD - Last Filed: 12/12/22 16:04> Patient Disposition: Home w/ Parent or Adult <Angelo Nascimento MD - Last Filed: 12/12/22 16:04> Condition: Stable <Angelo Nascimento MD - Last Filed: 12/12/22 16:04> Instructions: Acute Diarrhea (ED), Colitis (ED) <Angelo Nascimento MD - Last Filed: 12/12/22 16:04> Additional Instructions: Home rest use of Zofran if you feel nausea, would recommend lots and lots of yogurt, kimchi, and other probiotics. Please do the test that the nurses getting you, to rule out the C diff . Return here if increasing abdominal pain fevers chills nausea vomiting Stop the antibiotics at this point <Angelo Nascimento MD - Last Filed: 12/12/22 16:04> Activity Level: No Restrictions and Light activity <Angelo Nascimento MD - Last Filed: 12/12/22 16:04> No Restrictions and Light activity <Art Yadav MD - Last Filed: 12/12/22 13:21> Discharge Diet: Regular <Angelo Nascimento MD - Last Filed: 12/12/22 16:04> Regular <Art Yadav MD - Last Filed: 12/12/22 13:21> Prescriptions: No Action amoxicillin-pot clavulanate 875-125 mg tablet 1 tab PO BID 9 Days Qty: 18 0RF <Angelo Nascimento MD - Last Filed: 12/12/22 16:04> Follow Up/Referrals: Provider,Not a Local [Primary Care Provider] - <Angelo Nascimento MD - Last Filed: 12/12/22 16:04> Stand Alone Forms: MyHealth Info Instructions <Angelo Nascimento MD - Last Filed: 12/12/22 16:04> Discharge Comment: Pt left stool sample for this nurse before discharge, took it to the lab. <Angelo Nascimento MD - Last Filed: 12/12/22 16:04> Pt left stool sample for this nurse before discharge, took it to the lab. <Art Yadav MD - Last Filed: 12/12/22 13:21>
--- NOTE | 2022-12-12 08:20 | CRLHL7_ITS ---
For Patients: As a result of the Century Cures Act, medical imaging exams and procedure reports are released immediately into your electronic medical record. You may view this report before your referring provider. If you have questions, please contact your health care provider. INDICATION: RECENT APPENDICITIS, DIARRHEA, VOMITING, ABD PAIN TECHNIQUE: CT abdomen and pelvis acquired with 98 cc Isovue 370 IV contrast. COMPARISON: 12/03/2022. FINDINGS: Lower chest: Unremarkable. Liver: Unremarkable. Normal in size and attenuation. No suspicious masses. Gallbladder and bile ducts: Unremarkable. No stones or inflammation. No biliary dilatation. Pancreas: Unremarkable. No mass or inflammation. Spleen: Unremarkable. Normal in size. No masses. Adrenal glands: Unremarkable. No nodules. Kidneys: Unremarkable. No suspicious masses, stones, or hydronephrosis. GI tract: In this patient with a history of ???recent appendicitis?, the appendix appears to remain and is normal in caliber, with no periappendiceal inflammatory changes. Subjective mild circumferential uniform wall thickening over a long segment of the right colon, from the ascending colon to the proximal descending colon, could be due to colitis but is considered equivocal. No pericolic inflammatory fat stranding. Normal appendix. Vasculature: Abdominal aorta is normal in caliber. Mesenteric arteries are patent. Lymph nodes: No lymphadenopathy. Peritoneum/Abdominal Wall: Small fat containing umbilical hernia. Pelvis: Unremarkable. Bones: Unremarkable for age. IMPRESSION: Normal appendix. Finding consistent with mild long segmental colitis described above. Correlation with the patient`s clinical status is recommended. No other imaging findings are seen to explain the clinical history. Please note that all CT scans at this facility use dose modulation, iterative reconstruction, and/or weight-based dosing when appropriate to reduce radiation dose to as low as reasonably achievable. Dictated by Quinn Zarate MD @ 12/12/2022 9:24:51 AM (Electronically Signed)
[2022-12-12 08:24] VITALS: BP 123/85; PULSE 68; RESP 16; TEMP 36.4; O2SAT 97
[2022-12-12] MEDS: ONDANSETRON 2 MG/ML inj 4 MG IVP (08:29)
[2022-12-12] MEDS: 0.9 % SODIUM CHLORIDE 1000 ml 1,000 ML 2000 ML IV (08:29)
[2022-12-12] MEDS: KETOROLAC 30 MG/ML inj IVP (08:34)
[2022-12-12 08:37] LABS: Lactate* 1.5 mmol/L (0.5-1.9)
[2022-12-12 08:38] LABS: Basophils Absolute Auto 0.07 K/uL (0.00-0.30); Basophils Percent Auto 0.7 % (0.0-3.0); Eosinophils Absolute Auto 0.01 K/uL (0.00-0.50); Eosinophils Percent Auto 0.1 % (0.0-7.0); Hematocrit 49.7 % (37.0-53.0); Hemoglobin* 17.1 gm/dL (13.5-17.5); Immature Granulocytes Abs Auto 0.02 K/uL (0.00-0.30); Immature Granulocytes Pct Auto 0.2 %; Lymphocytes Percent Auto 13.9 % (20-44); Mean Corpuscular HGB Conc 34 gm/dL (32-36); Mean Corpuscular Hemoglobin 29 pg (26-34); Mean Corpuscular Volume 84 fL (80-100); Monocytes Percent Auto 6.1 % (0.0-11.0); Platelet Count* 263 K/uL (140-440); RDW Coefficient of Variation % 12.4 % (11.5-15.5); Red Blood Count 5.92 m/uL (4.30-5.90); White Blood Count* 10.25 K/uL (4.50-11.00)
[2022-12-12 08:45] LABS: Slide Review Reflex No
[2022-12-12 08:58] LABS: Albumin* 4.4 g/dL (3.3-5.0)
[2022-12-12 08:59] LABS: Chloride* 107 mmol/L (96-114); Potassium* 4.2 mmol/L (3.6-5.1); Sodium* 138 mmol/L (135-149)
[2022-12-12 09:01] LABS: Alkaline Phosphatase* 68 U/L (40-150); Aspartate Amino Transferase* 60 U/L (12-35); Bilirubin Direct* 0.5 mg/dL (0.0-0.5); Bilirubin Total* 1.4 mg/dL (0.1-1.5); Total Protein* 8.2 g/dL (6.0-8.3)
[2022-12-12 09:02] LABS: Alanine Aminotransferase* 45 U/L (4-50); Creatinine* 0.7 mg/dL (0.5-1.5); Est. Creatinine Clearance* 115.11; Estimated Glomerular Filt Rate 118 ml/min
[2022-12-12 09:03] LABS: Blood Urea Nitrogen* 12 mg/dL (5-24); Calcium* 8.6 mg/dL (8.4-10.6); Carbon Dioxide* 21 mmol/L (20-32); Glucose* 107 mg/dL (60-115)
[2022-12-12 09:05] LABS: C Reactive Protein* 0.7 mg/dL (0.5-1.0)
[2022-12-12 09:16] LABS: PCR FLU A Negative PCR FLU A (Negative); PCR FLU B Negative PCR FLU B (Negative)
[2022-12-12 09:58] LABS: SARS PCR* Negative SARS-CoV-2 (Negative)
[2022-12-12 14:16] LABS: C.Difficile Negative (Negative); CDIFFEPI 027 PRESUMPTIVE NEGATIVE (Negative)
== END 2022-12-12 12:13 | disposition home or self-care (01) ==
PROVIDERS: Family Medicine; Emergency Provider Family Medicine
DX: K52.9 Noninfective gastroenteritis and colitis, unspecified (principal)
CPT/HCPCS: 36415; 74177; 80048; 80076; 83605; 85025; 86140; 87493; 87631; 96374; 96375; 99284; J1885; J2405; J7030; Q9967